=== PATIENT | male | born 1950 | race Caucasian/White ===

== ENCOUNTER 2019-04-19 12:08 | Emergency (ER) | payer BC, MEDICARE ==
[~2019-04-19] VITALS: Ht 177.8 cm; Wt 85.6 kg
[2019-04-19 12:44] VITALS: BP 153/83
== END 2019-04-19 14:02 | disposition home or self-care (01) ==
LOC: ER 12:08
DX: R51 Headache (principal); Z88.8 Allergy status to other drugs, medicaments and biological substances
CPT/HCPCS: 70450; 93005; 99284